=== PATIENT | male | born 1960 | race Hispanic/Latino ===

== ENCOUNTER 2016-10-30 15:17 | Emergency (ER) | payer MEDICAID ==
[2016-10-30 15:25] VITALS: BMI 30.4
[2016-10-30 15:26] VITALS: BP 154/88; PULSE 91; RESP 16; TEMP 98.9; O2SAT 97
--- NOTE | 2016-10-30 15:50 | ED PDOC ---
Arrival/HPI - General Chief Complaint: Abnormal Skin Integrity Time Seen by Provider: 10/30/16 15:47 Historian: Patient - History of Present Illness Narrative History of Present Illness (Text): 10/30/16 15:53 55 year old male presents to the emergency department with 3 day duration of abscess on right posterior thigh right below the gluteal fold. Patient states pain is worse when sitting and better when standing. No fever or chills. Time/Duration: < week Symptom Onset: Gradual Symptom Course: Unchanged Modifying Factors (Text): Worse with sitting, better with standing Associated Symptoms (Text): None Past Medical History - Provider Review Nursing Documentation Reviewed: Yes - Infectious Disease Hx of Infectious Diseases: None - Cardiac Hx Cardiac Disorders: No Hx Pacemaker: No - Pulmonary Hx Respiratory Disorders: No - Neurological Hx Neurological Disorder: No Hx Paralysis: No - HEENT Hx HEENT Disorder: No - Renal Hx Renal Disorder: No - Endocrine/Metabolic Hx Endocrine Disorders: No - Hematological/Oncological Hx Blood Disorders: Yes (porphyria) Hx Blood Transfusions: Yes Hx Blood Transfusion Reaction: No Hx Hepatitis C: Yes - Integumentary Hx Dermatological Disorder: No - Musculoskeletal/Rheumatological Hx Musculoskeletal Disorders: No - Gastrointestinal Hx Gastrointestinal Disorders: No - Genitourinary/Gynecological Hx Genitourinary Disorders: No - Psychiatric Hx Psychophysiologic Disorder: Yes Hx Depression: Yes Hx Substance Use: No - Anesthesia Hx Anesthesia Reactions: No Hx Malignant Hyperthermia: No Family/Social History - Physician Review Nursing Documentation Reviewed: Yes Family/Social History: Unknown Family HX Smoking Status: Heavy Smoker > 10 Cigarettes Daily Hx Alcohol Use: No Hx Substance Use: No Allergies/Home Meds Allergies/Adverse Reactions: Allergies No Known Allergies Allergy (Verified 10/30/16 15:28) Review of Systems - Physician Review All systems were reviewed & negative as marked: Yes Physical Exam - Physical Exam Narrative Physical Exam (Text): - Review of Systems Constitutional: Normal. absent: Fatigue, Weight Change, Fevers Eyes: Normal ENT: Normal Respiratory: Normal absent: SOB, Cough, Sputum Cardiovascular: Normal absent: Chest pain, Palpitations, Syncope Gastrointestinal: Normal absent: Abdominal pain, Diarrhea, Nausea, Vomiting Genitourinary: Normal. absent: Dysuria, Frequency, Hematuria Musculoskeletal: Normal. absent: Arthralgias, Back Pain, Neck Pain Skin: Abscess on right posterior thigh right below gluteal fold Neurological: Normal absent: Focal Weakness Endocrine: Normal Hemo/Lymphatic: Normal Psychiatric: Normal - Physical exam Patient appears age appropriate, speaking full sentences without difficulty - Systems Exam Head: Present: Atraumatic, Normocephalic Pupils: Present: PERRL Extraocular Muscles: Present: EOMI Conjunctiva: Present: Normal Mouth: Present: Moist Mucous Membranes Neck: Present: Normal Range of Motion. No: MIDLINE TENDERNESS, Paraspinal Tenderness Respiratory/Chest: Present: Clear to Auscultation, Good Air Exchange. No: Respiratory Distress, Accessory Muscle Use, Tachypneic Cardiovascular: Present: Regular Rate and Rhythm, Normal S1, S2, Peripheral Pulses Present. No: Murmurs Abdomen: Present: Normal Bowel Sounds, No: Tenderness, Peritoneal Signs, Rebound, Guarding, Distention Back: Present: Normal Inspection. No: Midline Tenderness, Paraspinal Tenderness Upper Extremity: Present: Normal Inspection. No: Cyanosis, Edema Lower Extremity: Present: Palpable 2x2 cm mass on right posterior thigh right below gluteal fold with no fluctuance, no redness, no erythema, no induration No: Edema Neurological: Present: GCS=15, Speech Normal, cranial nerves II through XII fully intact with no cerebellar abnormality, neuro-sensory fully intact. No focal neurological deficits. Skin: Present: Warm, Dry, Normal Color. No: Rashes Lymphatic: Present: OX3, NI, NC Psychiatric: Present: Alert, Oriented x 3, Normal Insight, Normal Concentration. Vital Signs Reviewed: Yes Vital Signs Temp Pulse Resp BP Pulse Ox 10/30/16 15:25 98.9 F 91 H 16 154/88 H 97 Temperature: Afebrile Blood Pressure: Normal Pulse: Regular Respiratory Rate: Normal Appearance: Positive for: Well-Appearing, Non-Toxic, Comfortable Pain Distress: None Mental Status: Positive for: Alert and Oriented X 3 Medical Decision Making ED Course and Treatment: Impression: 55 year old male presents to the emergency department with 3 day duration of abscess on right posterior thigh right below the gluteal fold. On physical exam, patient has a palpable 2 x 2 cm mass on the right posterior thigh right below the gluteal fold. Differential Diagnosis include but are not limited to: Abscess Plan: -- Discharge with antibiotics Progress Notes: 10/30/16 15:57 Spoke with patient. Explained that this is likely an abscess with no immediate indications for I&D at this time. Recommended course of antibiotics first, and follow up in ER for bloodwork, imaging and further workup if symptoms not resolved within 48 hours. Patient agrees with plan. - Scribe Statement The provider has reviewed the documentation as recorded by the Damian Tucker Provider Scribe Attestation: All medical record entries made by the Scribe were at my direction and personally dictated by me. I have reviewed the chart and agree that the record accurately reflects my personal performance of the history, physical exam, medical decision making, and the department course for this patient. I have also personally directed, reviewed, and agree with the discharge instructions and disposition. Disposition/Present on Arrival - Present on Arrival Any Indicators Present on Arrival: No History of DVT/PE: No History of Uncontrolled Diabetes: No Urinary Catheter: No History of Decub. Ulcer: No History Surgical Site Infection Following: None - Disposition Have Diagnosis and Disposition been Completed?: Yes Diagnosis: Abscess Disposition: HOME/ ROUTINE Disposition Time: 15:49 Patient Plan: Discharge Condition: GOOD Discharge Instructions (ExitCare): Abscess (ED) Additional Instructions: PLEASE RETURN TO THE EMERGENCY DEPARTMENT FOR NEW OR WORSENING SYMPTOMS. RETURN RIGHT AWAY IF YOU CANNOT FOLLOW UP WITH YOUR PRIMARY CARE DOCTOR, CLINIC, OR SPECIALIST IN 1-2 DAYS. PLEASE RETURN IF SYMPTOMS HAVE NOT RESOLVED WITHIN 48 HOURS WITH ANTIBIOTICS Prescriptions: Cephalexin [Keflex] 500 mg PO TID #21 capsule Ibuprofen [Motrin] 600 mg PO Q8 PRN #12 tab PRN Reason: Pain, Moderate (4-7) Sulfamethoxazole/Trimethoprim [Bactrim DS 800 mg-160 mg] 1 tab PO Q12 #20 tab Referrals: Jonathan Ellis MD [Staff Provider] - Follow up with primary Dat Camp MD [Staff Provider] - Follow up with primary Forms: WORK NOTE
== END 2016-10-30 16:30 | disposition home or self-care (01) ==
LOC: ED 15:17
DX: L02.415 Cutaneous abscess of right lower limb (principal)

== ENCOUNTER 2016-11-03 14:01 | Emergency (ER) | payer MEDICAID ==
[2016-11-03 14:01] VITALS: BMI 30.4
[2016-11-03 14:37] VITALS: TEMP 98.1; O2SAT 100
[2016-11-03] MEDS ORDERED: Lidocaine 1%/Epinephrine 1:100000 30 ml vial IJ ONE (15:22)
--- NOTE | 2016-11-03 16:45 | ED PDOC ---
Arrival/HPI - General Chief Complaint: Abnormal Skin Integrity Time Seen by Provider: 11/03/16 14:50 - History of Present Illness Narrative History of Present Illness (Text): 11/03/16 16:52 55-year-old male with an abscess just below his left buttock, presents with increasing in size last few days. Reports compliance with antibiotics. States that it has gotten progressively bigger in size, but significantly decreased in pain. Denies fevers or chills, denies other complaints. Past Medical History - Provider Review Nursing Documentation Reviewed: Yes - Infectious Disease Hx of Infectious Diseases: None - Cardiac Hx Cardiac Disorders: No Hx Pacemaker: No - Pulmonary Hx Respiratory Disorders: No - Neurological Hx Neurological Disorder: No Hx Paralysis: No - HEENT Hx HEENT Disorder: No - Renal Hx Renal Disorder: No - Endocrine/Metabolic Hx Endocrine Disorders: No - Hematological/Oncological Hx Blood Disorders: Yes (porphyria) Hx Blood Transfusions: Yes Hx Blood Transfusion Reaction: No Hx Hepatitis C: Yes - Integumentary Hx Dermatological Disorder: No - Musculoskeletal/Rheumatological Hx Musculoskeletal Disorders: No - Gastrointestinal Hx Gastrointestinal Disorders: No - Genitourinary/Gynecological Hx Genitourinary Disorders: No - Psychiatric Hx Psychophysiologic Disorder: Yes Hx Depression: Yes Hx Substance Use: No - Anesthesia Hx Anesthesia: Yes Hx Anesthesia Reactions: No Hx Malignant Hyperthermia: No Family/Social History Family/Social History: Unknown Family HX Smoking Status: Heavy Smoker > 10 Cigarettes Daily Hx Alcohol Use: No Hx Substance Use: No Allergies/Home Meds Allergies/Adverse Reactions: Allergies No Known Allergies Allergy (Verified 11/03/16 14:35) Physical Exam Vital Signs Reviewed: Yes Vital Signs Temp Pulse Resp BP Pulse Ox 11/03/16 14:36 98.1 F 88 18 155/92 H 100 Temperature: Afebrile Blood Pressure: Hypertensive Pulse: Regular Respiratory Rate: Normal Appearance: Positive for: Well-Appearing Pain Distress: None Mental Status: Positive for: Alert and Oriented X 3 - Systems Exam Skin: Present: Other (Left lower extremity, posterior thigh, just below the gluteal fold, fluctuant erythematous mass consistent with an abscess. Approximately 4-5 cm in circumference) Medical Decision Making ED Course and Treatment: 11/03/16 16:48 Patient emergency department with an abscess which he states has become more superficial since his last visit, is now erythematous, and slightly larger. Verbal consent obtained for incision and drainage procedure. Patient instructed to follow-up with his primary physician or in the emergency department in 48 hours for packing removal and reevaluation. Patient has been taking antibiotics since his last visit and has been instructed to continue taking his course Pt states he understands to return to the ER right away for new or worsening symptoms or for inability to f/u with PMD or specialist as instructed. Patient states that he fully agrees with and understands discharge instructions. States that he agrees with the plan and disposition. Verbalized and repeated discharge instructions and plan. I have given the patient opportunity to ask any additional questions. - Medication Orders Current Medication Orders: Discontinued Medications Lidocaine/Epinephrine (Lidocaine 1%/Epinephrine 1:740308 30 Ml) 30 ml IJ ONCE ONE Stop: 11/03/16 15:23 Disposition/Present on Arrival - Present on Arrival Any Indicators Present on Arrival: No History of DVT/PE: No History of Uncontrolled Diabetes: No Urinary Catheter: No History of Decub. Ulcer: No History Surgical Site Infection Following: None - Disposition Have Diagnosis and Disposition been Completed?: Yes Diagnosis: Abscess Disposition: HOME/ ROUTINE Disposition Time: 16:40 Patient Plan: Discharge Condition: GOOD Discharge Instructions (ExitCare): Abscess (ED), Abscess Incision and Drainage (ED) Additional Instructions: Please continue taking antibiotics as prescribed during her last visit Keep wound clean and dry Follow-up with primary physician or in the emergency department in 48 hours for packing removal Return to ER right away for pain, redness, swelling or excessive drainage, or if you are able to follow-up as instructed Referrals: Dat Camp MD [Primary Care Provider] - Follow up with primary - Incision & Drainage Of Abscess Anesthesia: Lidocaine 1%, With Epi Prep Used: Betadine Procedure: Incised W/Scalpel Blade#: (10), Drained Pus (15ml), Probed To Break Up Loculations, Packed W/Gauze
[2016-11-03 17:51] VITALS: BP 139/76; PULSE 81; RESP 17
[2016-11-04] MEDS ORDERED: Albuterol-Ipratrop 3 mg / 0.5 (3 ml) UD IH SCH (18:00)
== END 2016-11-03 17:50 | disposition home or self-care (01) ==
LOC: ED 14:01
DX: L02.31 Cutaneous abscess of buttock (principal); F17.210 Nicotine dependence, cigarettes, uncomplicated

== ENCOUNTER 2016-11-05 13:12 | Emergency (ER) | payer MEDICAID ==
[2016-11-05 13:12] VITALS: BMI 30.4
[2016-11-05 13:22] VITALS: RESP 16; TEMP 98.4
--- NOTE | 2016-11-05 14:30 | ED PDOC ---
Arrival/HPI - General Chief Complaint: Wound Check Time Seen by Provider: 11/05/16 14:26 Historian: Patient - History of Present Illness Narrative History of Present Illness (Text): 11/05/16 14:27 This 55 yo male presents to this ED for wound recheck and packing removal. Patient stated he was seen in this ED x 2 days. He had an I&D and he was recommneded nto return to ED for revaluation. He said abscess pain has improved. Denies new complains Context: Home Past Medical History - Provider Review Nursing Documentation Reviewed: Yes - Infectious Disease Hx of Infectious Diseases: None - Cardiac Hx Cardiac Disorders: No Hx Pacemaker: No - Pulmonary Hx Respiratory Disorders: No - Neurological Hx Neurological Disorder: No Hx Paralysis: No - HEENT Hx HEENT Disorder: No - Renal Hx Renal Disorder: No - Endocrine/Metabolic Hx Endocrine Disorders: No - Hematological/Oncological Hx Blood Disorders: Yes Hx Blood Transfusions: Yes Hx Blood Transfusion Reaction: No Hx Hepatitis C: Yes - Integumentary Hx Dermatological Disorder: No - Musculoskeletal/Rheumatological Hx Musculoskeletal Disorders: No - Gastrointestinal Hx Gastrointestinal Disorders: No - Genitourinary/Gynecological Hx Genitourinary Disorders: No - Psychiatric Hx Psychophysiologic Disorder: Yes Hx Depression: Yes Hx Substance Use: No - Anesthesia Hx Anesthesia: Yes Hx Anesthesia Reactions: No Hx Malignant Hyperthermia: No Family/Social History - Physician Review Nursing Documentation Reviewed: Yes Family/Social History: No Known Family HX Smoking Status: Heavy Smoker > 10 Cigarettes Daily Hx Alcohol Use: No Hx Substance Use: No Allergies/Home Meds Allergies/Adverse Reactions: Allergies No Known Allergies Allergy (Verified 11/05/16 13:19) Review of Systems - Review of Systems Constitutional: Normal. absent: Fatigue, Weight Change, Fevers Eyes: Normal ENT: Normal Respiratory: Normal Cardiovascular: Normal Gastrointestinal: Normal Genitourinary Male: Normal Musculoskeletal: Normal Skin: Rash, Pruritis, Other (See HPI). absent: Skin Lesions, Laceration Neurological: Normal Endocrine: Normal Hemo/Lymphatic: Normal Psychiatric: Normal Physical Exam Vital Signs Temp Pulse Resp BP Pulse Ox 11/05/16 13:20 98.4 F 96 H 16 132/86 97 Temperature: Afebrile Blood Pressure: Normal Pulse: Regular Respiratory Rate: Normal Appearance: Positive for: Well-Appearing, Non-Toxic, Comfortable Pain Distress: None Mental Status: Positive for: Alert and Oriented X 3 - Systems Exam Head: Present: Atraumatic, Normocephalic Pupils: Present: PERRL Extroacular Muscles: Present: EOMI Conjunctiva: Present: Normal Mouth: Present: Moist Mucous Membranes Neck: Present: Normal Range of Motion Respiratory/Chest: Present: Clear to Auscultation, Good Air Exchange. No: Respiratory Distress, Accessory Muscle Use, Wheezes Cardiovascular: Present: Regular Rate and Rhythm, Normal S1, S2. No: Murmurs Back: Present: Normal Inspection Upper Extremity: Present: Normal Inspection, Normal ROM, NORMAL PULSES, Neurovascularly Intact, Capillary Refill < 2s Lower Extremity: Present: Normal Inspection, NORMAL PULSES, Normal ROM, Neurovascularly Intact, Capillary Refill < 2 s. No: Edema, CALF TENDERNESS Neurological: Present: GCS=15, CN II-XII Intact, Speech Normal, Motor Func Grossly Intact, Normal Sensory Function, Normal Cerebellar Funct, Gait Normal, Memory Normal Skin: Present: Warm, Dry, Rashes (urticaria like rash, balnches on palpation), Normal Color Psychiatric: Present: Alert, Oriented x 3 Medical Decision Making ED Course and Treatment: 11/05/16 14:30 Patient is resting comfortably, and is in no acute distress. Patient was instructed to follow up with PMD in 1-2 days for further evaluation. Re-evaluation Time: 14:30 Reassessment Condition: Re-examined, Improved - Procedure PROCEDURE NOTE (Text): 11/05/16 14:31 Packing was removed without complication. Wound is healing well. No drainage , erythema, or tenderness. Disposition/Present on Arrival - Present on Arrival Any Indicators Present on Arrival: No History of DVT/PE: No History of Uncontrolled Diabetes: No Urinary Catheter: No History of Decub. Ulcer: No History Surgical Site Infection Following: None - Disposition Have Diagnosis and Disposition been Completed?: Yes Diagnosis: Encounter for wound re-check, Encounter for removal of abscess packing, Rash and nonspecific skin eruption Disposition: HOME/ ROUTINE Disposition Time: 14:32 Patient Plan: Discharge Condition: IMPROVED Discharge Instructions (ExitCare): Abscess Incision and Drainage (ED), Acute Rash (ED) Additional Instructions: Call private doctor for follow up visit in 1-2 days. Continue with antibiotic as instructed by the other doctor. Take medication for itchiness as instructed. This medication can cause drowsiness, so be careful and avoid driving or operate machinery. Return to emergency if symptoms worsen. Prescriptions: Hydroxyzine Pamoate [Vistaril] 25 mg PO TID PRN #30 capsule PRN Reason: Itching / Pruritus Referrals: Dat Camp MD [Primary Care Provider] - Follow up with primary Forms: WORK NOTE
[2016-11-05 15:02] VITALS: BP 128/80; PULSE 91; O2SAT 98
== END 2016-11-05 15:01 | disposition home or self-care (01) ==
LOC: ED 13:12
DX: R21 Rash and other nonspecific skin eruption (principal); Z48.00 Encounter for change or removal of nonsurgical wound dressing; Z51.89 Encounter for other specified aftercare

== ENCOUNTER 2016-12-22 20:33 | Observation (INO) | payer MEDICAID ==
[2016-12-22 20:34] VITALS: BMI 30.4
[2016-12-22] MEDS ORDERED: Piperacillin/Tazobact 3.375 gm 100 ML IVPB STA (22:37)
[2016-12-22] MEDS ORDERED: Vancomycin 1gm in NS 250ml 1 GM/250 ML BAG IVPB STA (22:37)
--- NOTE | 2016-12-22 22:45 | ED PDOC ---
Arrival/HPI <Demetris Hammer - Last Filed: 12/22/16 23:06> - General Historian: Patient <Raysa Parada PA-C - Last Filed: 12/23/16 01:22> - General Chief Complaint: Abnormal Skin Integrity Time Seen by Provider: 12/22/16 20:40 - History of Present Illness Narrative History of Present Illness (Text): 12/22/16 22:41 Patient with no significant past medical history, complains of a painful mass of gradually increasing size of the right-sided the scrotum for one week. Denies any abdominal pain, nausea, vomiting, urinary symptoms, testicular pain or back pain. Otherwise: (-) foreign body, (-) fever, (-) chills, (-) recent antibiotic use. PMD [place] (Raysa Parada PA-C) Past Medical History - Provider Review Nursing Documentation Reviewed: Yes - Infectious Disease Hx of Infectious Diseases: None - Tetanus Immunization Tetanus Immunization: Up to Date - Cardiac Hx Cardiac Disorders: No Hx Pacemaker: No - Pulmonary Hx Respiratory Disorders: No - Neurological Hx Neurological Disorder: No Hx Paralysis: No - HEENT Hx HEENT Disorder: No - Renal Hx Renal Disorder: No - Endocrine/Metabolic Hx Endocrine Disorders: No - Hematological/Oncological Hx Blood Disorders: Yes Hx Blood Transfusions: Yes Hx Blood Transfusion Reaction: No Hx Hepatitis C: Yes - Integumentary Hx Dermatological Disorder: Yes Other/Comment: abcess to the L inner thigh. mikaela - Musculoskeletal/Rheumatological Hx Musculoskeletal Disorders: No - Gastrointestinal Hx Gastrointestinal Disorders: No - Genitourinary/Gynecological Hx Genitourinary Disorders: No - Psychiatric Hx Psychophysiologic Disorder: Yes Hx Depression: Yes Hx Substance Use: No - Surgical History Hx Appendectomy: Yes Other/Comment: L wrist surgery - Anesthesia Hx Anesthesia: Yes Hx Anesthesia Reactions: No <Raysa Parada PA-C - Last Filed: 12/23/16 01:22> Family/Social History - Physician Review Nursing Documentation Reviewed: Yes Family/Social History: No Known Family HX Smoking Status: Heavy Smoker > 10 Cigarettes Daily Hx Alcohol Use: No Hx Substance Use: No <Raysa Parada PA-C - Last Filed: 12/23/16 01:22> Allergies/Home Meds <Demetris Hammer - Last Filed: 12/22/16 23:06> <Raysa Parada PA-C - Last Filed: 12/23/16 01:22> Allergies/Adverse Reactions: Allergies No Known Allergies Allergy (Verified 12/22/16 20:38) Home Medications: Home Meds Medication Instructions Recorded Confirmed DiphenhydrAMINE [Benadryl] 50 mg PO DAILY 12/22/16 12/22/16 Sertraline [Zoloft] 50 mg PO BID 12/22/16 12/22/16 Review of Systems - Review of Systems Constitutional: Normal. absent: Fatigue, Weight Change, Fevers Respiratory: Normal. absent: SOB, Cough, Sputum Cardiovascular: Normal. absent: Chest Pain, Palpitations Gastrointestinal: Normal. absent: Abdominal Pain, Stool Changes, Appetite Changes Genitourinary Male: Normal. absent: Dysuria, Frequency, Hematuria Musculoskeletal: Normal. absent: Arthralgias, Back Pain, Neck Pain Skin: Normal, Abscess. absent: Rash, Pruritis, Skin Lesions <Raysa Parada PA-C - Last Filed: 12/23/16 01:22> Physical Exam <Demetris Hammer - Last Filed: 12/22/16 23:06> <Raysa Parada PA-C - Last Filed: 12/23/16 01:22> - Physical Exam Narrative Physical Exam (Text): 12/22/16 22:42 GENERAL APPEARANCE: Patient is awake, alert, oriented x 3, in no acute distress. SKIN: Warm, dry; (-) cyanosis. EYES: (-) conjunctival pallor, (-) scleral icterus. ENMT: Mucous membranes moist. NECK: (-) tenderness, (-) stiffness, (-) lymphadenopathy. CHEST AND RESPIRATORY: (-) rales, (-) rhonchi, (-) wheezes; breath sounds equal bilaterally. HEART AND CARDIOVASCULAR: (-) irregularity; (-) murmur, (-) gallop. ABDOMEN AND GI: (-) distention. Bowel sounds active; (-) tenderness, (-) guarding, (-) rebound, (-) palpable masses, (-) CVA tenderness. : Normal circumcised male, (+) 3x4 cm erythematous, tender, fluctuant abscess to the R scrotum proximal to the shaft. EXTREMITIES: (-) deformity, (-) edema, (+) distal pulses. NEURO AND PSYCH: Mental status as above; (-) focal findings. (Raysa Parada PA-C) Vital Signs Temp Pulse Resp BP Pulse Ox 12/23/16 00:38 85 18 129/80 100 12/22/16 20:41 98.5 F 89 19 133/78 99 Medical Decision Making <Demetris Hammer - Last Filed: 12/22/16 23:06> <Raysa Parada PA-C - Last Filed: 12/23/16 01:22> ED Course and Treatment: 12/22/16 22:44 Patient with no significant past medical history, complains of a painful mass of gradually increasing size of the right-sided the scrotum for one week. To consider cellulitis, likely abscess, r/o testicular torsion. Plan: -- Labs -- IV fluids -- Urinalysis -- EKG -- CXR -- Toradol IV -- Vancomycin IV and Zosyn IV -- Reassess and disposition -- testicular ultrasound with Doppler residential monitor called immediately. Case discussed with vice president and portfolio manager Dr. Ziyad Whitney, agrees to come and evaluate the patient. After evaluation of the vice president and portfolio manager, he deems that the patient needs incision and drainage in the OR. Recommends labs, IV antibiotics, testicular ultrasound and for the patient to be admitted for OR in the morning. Patient agrees with further plan of care for inpatient admission and OR in the AM. Case d/w Dr. Puga she agrees to admit the patient. (Raysa Parada PA-C) - Lab Interpretations Lab Results: 12/22/16 22:50 12/22/16 22:50 Lab Results 12/22/16 22:50: Sodium 140, Potassium 4.1, Chloride 107, Carbon Dioxide 24, Anion Gap 13, BUN 16, Creatinine 0.9, Est GFR ( Amer) > 60, Est GFR (Non- Af Amer) > 60, Random Glucose 96, Calcium 9.4, Total Bilirubin 0.4, AST 23, ALT 26, Alkaline Phosphatase 74, Total Protein 8.0, Albumin 4.5, Globulin 3.5, Albumin/Globulin Ratio 1.3 12/22/16 22:50: PT 10.7, INR 0.99, APTT 27.5 12/22/16 22:50: WBC 8.5 D, RBC 3.85, Hgb 12.8 L, Hct 36.2 L, MCV 94.0, MCH 33.2 , MCHC 35.4, RDW 13.8, Plt Count 222, MPV 10.7, Gran % 61.1, Lymph % (Auto) 26.8 , [place] % (Auto) 8.5 H, Eos % (Auto) 3.4, Baso % (Auto) 0.2, Gran # 5.20, Lymph # 2.3, [place] # 0.7 H, Eos # 0.3, Baso # 0.02 - RAD Interpretation Radiology Orders: 12/22/16 22:36 CHEST ONE VIEW [RAD] Stat 12/22/16 22:38 TESTES DUPLEX COMPLETE [US] Stat - Medication Orders Current Medication Orders: Dextrose/Sodium Chloride (Dextrose 5%/0.45% Ns 1000 Ml) 1,000 mls @ 100 mls/hr IV .Q10H CELINE Ketorolac Tromethamine (Toradol) 15 mg IVP Q6H PRN PRN Reason: Pain, Mild (1-3) Discontinued Medications Cephalexin Monohydrate (Keflex) 500 mg PO BID STA PRN Reason: Protocol Stop: 12/22/16 23:57 Vancomycin HCl (Vancomycin 1gm) 1 gm in 250 mls @ 167 mls/hr IVPB STAT STA PRN Reason: Protocol Stop: 12/23/16 00:06 Last Admin: 12/23/16 00:08 Dose: 167 mls/hr Piperacillin Sod/Tazobactam Sod (Zosyn 3.375 In Ns 100ml) 100 mls @ 200 mls/hr IVPB STAT STA PRN Reason: Protocol Stop: 12/22/16 23:06 Last Admin: 12/22/16 23:17 Dose: 200 mls/hr Ketorolac Tromethamine (Toradol) 30 mg IVP STAT STA Stop: 12/22/16 22:38 Last Admin: 12/22/16 23:16 Dose: 30 mg - PA / TURF GROWER / Resident Statement PRESTON has reviewed & agrees with the documentation as recorded. PRESTON has examined the patient and agrees with the treatment plan. <Demetris Hammer - Last Filed: 12/22/16 23:06> - PA / TURF GROWER / Resident Statement / has reviewed & agrees with the documentation as recorded. <Raysa Parada PA-C - Last Filed: 12/23/16 01:22> Disposition/Present on Arrival <Demetris Hammer - Last Filed: 12/22/16 23:06> - Present on Arrival Any Indicators Present on Arrival: No History of DVT/PE: No History of Uncontrolled Diabetes: No Urinary Catheter: No History of Decub. Ulcer: No History Surgical Site Infection Following: None - Disposition Have Diagnosis and Disposition been Completed?: Yes Disposition Time: 22:15 Patient Plan: Admission <Raysa Parada PA-C - Last Filed: 12/23/16 01:22> - Disposition Diagnosis: Scrotal abscess Disposition: HOSPITALIZED Patient Problems: Current Active Problems Problem Status Onset Scrotal abscess Acute Condition: STABLE
[2016-12-22 23:10] LABS: ALB/GLOB RATIO 1.3 (1.1-1.8); ALBUMIN 4.5 g/dL (3.0-4.8); ALT/SGPT 26 U/L (7-56); AST/SGOT 23 U/L (15-59); BLOOD UREA NITROGEN 16 mg/dL (7-21); CALCIUM 9.4 mg/dL (8.4-10.5); GFR AFRICAN-AMERICAN > 60; GFR NON-AFRICAN AMERICAN > 60
[2016-12-22 23:33] LABS: BASO # 0.02 K/mm3 (0.0-2.0); BASO % 0.2 % (0.0-3.0); EOS # 0.3 (0.0-0.7); EOS % 3.4 % (1.5-5.0); GRAN % 61.1 % (50.0-68.0); HEMOGLOBIN 12.8 gm/dL (14.0-18.0); LYMPH # 2.3 (1.2-3.4); LYMPH % 26.8 % (22.0-35.0); MEAN CORPUSCULAR HEMOGLOBIN 33.2 pg (25.0-35.0); MEAN CORPUSCULAR HGB CONC 35.4 g/dl (31.0-37.0); MEAN PLATELET VOLUME 10.7 fl (7.0-11.0); MONO # 0.7 (0.1-0.6); MONO % 8.5 % (1.0-6.0); PLATELET COUNT 222 10^3/uL (120.0-450.0); RBC 3.85 10^6/uL (3.5-6.1); RED CELL DISTRIBUTION WIDTH 13.8 % (11.5-14.5); WHITE BLOOD COUNT 8.5 10^3/ul (4.5-11.0)
[2016-12-22 23:37] LABS: INR 0.99 (0.93-1.08); PARTIAL THROMBOPLASTIN TIME 27.5 Seconds (23.7-30.8); PROTHROMBIN TIME 10.7 Seconds (9.9-11.8)
--- NOTE | 2016-12-23 00:09 | CP.PCM.CON ---
Past Patient History - Infectious Disease Hx of Infectious Diseases: None - Tetanus Immunizations Tetanus Immunization: Up to Date - Past Social History Smoking Status: Heavy Smoker > 10 Cigarettes Daily - CARDIAC Hx Cardiac Disorders: No Hx Pacemaker: No - PULMONARY Hx Respiratory Disorders: No - NEUROLOGICAL Hx Neurological Disorder: No Hx Paralysis: No - HEENT Hx HEENT Problems: No - RENAL Hx Chronic Kidney Disease: No - ENDOCRINE/METABOLIC Hx Endocrine Disorders: No - HEMATOLOGICAL/ONCOLOGICAL Hx Blood Disorders: Yes Hx Blood Transfusions: Yes Hx Blood Transfusion Reaction: No Hx Hepatitis C: Yes - INTEGUMENTARY Hx Dermatological Problems: Yes Other/Comment: abcess to the L inner thigh. mikaela - MUSCULOSKELETAL/RHEUMATOLOGICAL Hx Musculoskeletal Disorders: No - GASTROINTESTINAL Hx Gastrointestinal Disorders: No - GENITOURINARY/GYNECOLOGICAL Hx Genitourinary Disorders: No - PSYCHIATRIC Hx Psychophysiologic Disorder: Yes Hx Depression: Yes Hx Substance Use: No - SURGICAL HISTORY Hx Appendectomy: Yes Other/Comment: L wrist surgery - ANESTHESIA Hx Anesthesia: Yes Hx Anesthesia Reactions: No Meds Allergies/Adverse Reactions: Allergies Allergy/AdvReac Type Severity Reaction Status Date / Time No Known Allergies Allergy Verified 12/22/16 20:38 - Medications Medications: Current Medications Cephalexin Monohydrate (Keflex) 500 mg PO BID STA PRN Reason: Protocol Stop: 12/22/16 23:57 Vancomycin HCl (Vancomycin 1gm) 1 gm in 250 mls @ 167 mls/hr IVPB STAT STA PRN Reason: Protocol Stop: 12/23/16 00:06 Ketorolac Tromethamine (Toradol) 15 mg IVP Q6H PRN PRN Reason: Pain, Mild (1-3) Results - Vital Signs Recent Vital Signs: Last Vital Signs Temp 98.5 F 12/22/16 20:41 Pulse 89 12/22/16 20:41 Resp 19 12/22/16 20:41 BP 133/78 12/22/16 20:41 Pulse Ox 99 12/22/16 20:41 - Labs Result Diagrams: 12/22/16 22:50 12/22/16 22:50
--- NOTE | 2016-12-23 00:13 | CP.PCM.HP ---
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 Pt presents with CC of a right scrotal tenderness he first noticed 5 days ago as a small marble sized lesion. Over the following 5 days it progressively enlarged and became more tender, and is now an inflamed fluctuant 2x2cm mass on the right scrotum. Pt denies any associated f/c, n/c, dysuria or urethral discharge. Reports having had a similar abscess on the medial thigh several weeks ago that required incision and drainage. PMH: as above PSH: none NKDA Present on Admission - Present on Admission Any Indicators Present on Admission: No Review of Systems - Review of Systems All systems: reviewed and no additional remarkable complaints except (as per hpi ) Past Patient History - Infectious Disease Hx of Infectious Diseases: None - Tetanus Immunizations Tetanus Immunization: Up to Date - Past Social History Smoking Status: Heavy Smoker > 10 Cigarettes Daily - CARDIAC Hx Cardiac Disorders: No Hx Pacemaker: No - PULMONARY Hx Respiratory Disorders: No - NEUROLOGICAL Hx Neurological Disorder: No Hx Paralysis: No - HEENT Hx HEENT Problems: No - RENAL Hx Chronic Kidney Disease: No - ENDOCRINE/METABOLIC Hx Endocrine Disorders: No - HEMATOLOGICAL/ONCOLOGICAL Hx Blood Disorders: Yes Hx Blood Transfusions: Yes Hx Blood Transfusion Reaction: No Hx Hepatitis C: Yes - INTEGUMENTARY Hx Dermatological Problems: Yes Other/Comment: abcess to the L inner thigh. mikaela - MUSCULOSKELETAL/RHEUMATOLOGICAL Hx Musculoskeletal Disorders: No - GASTROINTESTINAL Hx Gastrointestinal Disorders: No - GENITOURINARY/GYNECOLOGICAL Hx Genitourinary Disorders: No - PSYCHIATRIC Hx Psychophysiologic Disorder: Yes Hx Depression: Yes Hx Substance Use: No - SURGICAL HISTORY Hx Appendectomy: Yes Other/Comment: L wrist surgery - ANESTHESIA Hx Anesthesia: Yes Hx Anesthesia Reactions: No Meds Allergies/Adverse Reactions: Allergies Allergy/AdvReac Type Severity Reaction Status Date / Time No Known Allergies Allergy Verified 12/22/16 20:38 Physical Exam - Constitutional Appears: Non-toxic, No Acute Distress - Respiratory Exam Respiratory Exam: absent: Accessory Muscle Use, Respiratory Distress - Cardiovascular Exam Cardiovascular Exam: REGULAR RHYTHM. absent: Tachycardia - GI/Abdominal Exam GI & Abdominal Exam: Soft. absent: Tenderness - Exam Exam: Scrotal Swelling, Testicular Tenderness. absent: NORMAL INSPECTION ( 2x2 red indurated abscess on right scrotum), Uretheral Discharge - Neurological Exam Neurological exam: Alert, Oriented x3 - Psychiatric Exam Psychiatric exam: Normal Affect, Normal Mood - Skin Skin Exam: Normal Color, Warm Results - Vital Signs Recent Vital Signs: Last Vital Signs Temp 98.5 F 12/22/16 20:41 Pulse 89 12/22/16 20:41 Resp 19 12/22/16 20:41 BP 133/78 12/22/16 20:41 Pulse Ox 99 12/22/16 20:41 - Labs Result Diagrams: 12/22/16 22:50 12/22/16 22:50 Assessment & Plan - Assessment and Plan (Free Text) Assessment: 56M with right scrotal abscess Plan: Keflex BID NPO @ [facility] OR tomorrow for incision and drainage CXR, EKG, Coags all in chart IV fluids will follow up with Dr Puga in [place], PGY3 - Date & Time Date: 12/23/16 Time: 00:13
[2016-12-23] MEDS ORDERED: Dextrose 5%/0.45% NS 1,000 ML IV SCH (00:15)
[2016-12-23 00:42] LABS: URINE BILIRUBIN NEGATIVE (NEGATIVE); URINE BLOOD NEGATIVE (NEGATIVE); URINE GLUCOSE (UA) NEGATIVE (NEGATIVE); URINE LEUKOCYTE ESTERASE NEGATIVE Leu/uL (NEGATIVE); URINE NITRATE NEGATIVE (NEGATIVE); URINE PROTEIN NEGATIVE mg/dL (<30 mg/dL); URINE UROBILINOGEN 0.2 E.U./dL (<1 E.U./dL)
[2016-12-23 00:56] LABS: URINE APPEARANCE CLEAR (CLEAR); URINE COLOR YELLOW (YELLOW)
--- NOTE | 2016-12-23 08:46 | CARD ---
APPROVED REPORT EKG Measurement Heart [id number] <Conclusion> Normal sinus rhythm Cannot rule out Anterior infarct, age undetermined Abnormal ECG
--- NOTE | 2016-12-23 09:28 | CP.PCM.PN ---
Subjective - Date & Time of Evaluation Date of Evaluation: 12/23/16 Time of Evaluation: 08:28 - Subjective Subjective: PT S&E at bedside. MARITZA. Objective - Vital Signs/Intake and Output Vital Signs (last 24 hours): Temp Pulse Resp BP Pulse Ox 97.7 F 64 20 132/81 98 12/23/16 08:15 12/23/16 08:15 12/23/16 08:15 12/23/16 08:15 12/23/16 08:15 Intake and Output: 12/23/16 12/23/16 06:59 18:59 Intake Total 0 Balance 0 - Medications Medications: Current Medications Dextrose/Sodium Chloride (Dextrose 5%/0.45% Ns 1000 Ml) 1,000 mls @ 100 mls/hr IV .Q10H CELINE Ketorolac Tromethamine (Toradol) 15 mg IVP Q6H PRN PRN Reason: Pain, Mild (1-3) - Labs Labs: PT 10.7 Seconds (9.9-11.8) 12/22/16 22:50 INR 0.99 (0.93-1.08) 12/22/16 22:50 APTT 27.5 Seconds (23.7-30.8) 12/22/16 22:50
[2016-12-23 10:45] LABS: BASO # 0.02 K/mm3 (0.0-2.0); BASO % 0.3 % (0.0-3.0); EOS # 0.3 (0.0-0.7); EOS % 4.8 % (1.5-5.0); GRAN # 3.85 (1.4-6.5); GRAN % 58.3 % (50.0-68.0); HEMOGLOBIN 12.7 gm/dL (14.0-18.0); LYMPH # 1.7 (1.2-3.4); LYMPH % 25.7 % (22.0-35.0); MEAN CELL VOLUME 94.6 fL (80.0-105.0); MEAN CORPUSCULAR HEMOGLOBIN 31.3 pg (25.0-35.0); MEAN CORPUSCULAR HGB CONC 33.1 g/dl (31.0-37.0); MEAN PLATELET VOLUME 10.2 fl (7.0-11.0); MONO # 0.7 (0.1-0.6); MONO % 10.9 % (1.0-6.0); PLATELET COUNT 191 10^3/uL (120.0-450.0); RBC 4.06 10^6/uL (3.5-6.1); RED CELL DISTRIBUTION WIDTH 13.6 % (11.5-14.5); WHITE BLOOD COUNT 6.6 10^3/ul (4.5-11.0)
[2016-12-23 10:55] LABS: BLOOD UREA NITROGEN 15 mg/dL (7-21); CALCIUM 8.7 mg/dL (8.4-10.5); GFR AFRICAN-AMERICAN > 60; GFR NON-AFRICAN AMERICAN > 60
--- NOTE | 2016-12-23 10:57 | RAD ---
PROCEDURE: CHEST RADIOGRAPH, 1 VIEW HISTORY: for OR tomorrow COMPARISON: 10/28/2014 FINDINGS: LUNGS: Two vaguely ovoid opacities at left base, 1 of which appears to extend beyond the chest confines and likely resides in soft tissues overlying the chest. The 2nd density may be within the parenchyma itself or in the overlying soft tissues. Further evaluation is suggested. Recommend PA and lateral chest radiograph when clinically feasible. No other abnormal pulmonary opacity identified. PLEURA: No pneumothorax or pleural fluid seen. CARDIOVASCULAR: Normal. OSSEOUS STRUCTURES: No significant abnormalities. VISUALIZED UPPER ABDOMEN: Normal. OTHER FINDINGS: None. IMPRESSION: Ovoid opacity at left lung base. Rule out pulmonary mass or rounded infiltrate. Followup advised. Consider PA and lateral chest radiography when clinically feasible. .
[2016-12-23] MEDS ORDERED: Propofol 10 mg/ml Inj (20 ML) ONE (12:58)
[2016-12-23] MEDS ORDERED: Midazolam 2 MG/2 ML VIAL ONE (12:58)
[2016-12-23] MEDS ORDERED: Lactated Ringer's 1,000 ML IV SCH (14:16)
[2016-12-23] MEDS ORDERED: HYDROmorphone 0.5 mg/0.5 ml ISec IVP PRN (14:16)
--- NOTE | 2016-12-23 14:18 | PCM.SURG1 ---
Surgeon's Initial Post Op Note - Surgeon's Notes Surgeon: Costume Mistress: Dr. Chinchilla PGY-2, Dr. Urena PGY-1 Type of Anesthesia: General LMA Anesthesia Administered By: Dr. Calderon Pre-Operative Diagnosis: Right scrotal abscess Operative Findings: see operative report Post-Operative Diagnosis: same Operation Performed: incision and drainage of scotal abscess (right) Specimen/Specimens Removed: pus Estimated Blood Loss: EBL {In ML}: 3 Blood Products Given: N/A Drains Used: No Drains Post-Op Condition: Good Date of Surgery/Procedure: 12/23/16 Time of Surgery/Procedure: 13:30
[2016-12-23] MEDS ORDERED: Oxycodone/Acetaminophen 5/325 mg Tab PO PRN (14:21)
[2016-12-23 14:35] VITALS: O2SAT 95
[2016-12-23 15:39] VITALS: BP 113/80; PULSE 61; RESP 20; TEMP 97.4
--- NOTE | 2016-12-23 16:26 | CP.PCM.DIS ---
Provider - Provider Date of Admission: 12/22/16 23:10 Attending physician: Leigh Puga MD Primary care physician: Dat Camp MD Time Spent in preparation of Discharge (in minutes): 25 Hospital Course - Lab Results Lab Results: Most Recent Lab Values WBC 6.6 10^3/ul (4.5-11.0) D 12/23/16 10:35 RBC 4.06 10^6/uL (3.5-6.1) 12/23/16 10:35 Hgb 12.7 gm/dL (14.0-18.0) L 12/23/16 10:35 Hct 38.4 % (42.0-52.0) L 12/23/16 10:35 MCV 94.6 fL (80.0-105.0) 12/23/16 10:35 MCH 31.3 pg (25.0-35.0) 12/23/16 10:35 MCHC 33.1 g/dl (31.0-37.0) 12/23/16 10:35 RDW 13.6 % (11.5-14.5) 12/23/16 10:35 Plt Count 191 10^3/uL (120.0-450.0) 12/23/16 10:35 MPV 10.2 fl (7.0-11.0) 12/23/16 10:35 Gran % 58.3 % (50.0-68.0) 12/23/16 10:35 Lymph % (Auto) 25.7 % (22.0-35.0) 12/23/16 10:35 [place] % (Auto) 10.9 % (1.0-6.0) H 12/23/16 10:35 Eos % (Auto) 4.8 % (1.5-5.0) 12/23/16 10:35 Baso % (Auto) 0.3 % (0.0-3.0) 12/23/16 10:35 Gran # 3.85 (1.4-6.5) 12/23/16 10:35 Lymph # 1.7 (1.2-3.4) 12/23/16 10:35 [place] # 0.7 (0.1-0.6) H 12/23/16 10:35 Eos # 0.3 (0.0-0.7) 12/23/16 10:35 Baso # 0.02 K/mm3 (0.0-2.0) 12/23/16 10:35 PT 10.7 Seconds (9.9-11.8) 12/22/16 22:50 INR 0.99 (0.93-1.08) 12/22/16 22:50 APTT 27.5 Seconds (23.7-30.8) 12/22/16 22:50 Sodium 141 mmol/L (132-148) 12/23/16 10:35 Potassium 4.4 mmol/L (3.6-5.0) 12/23/16 10:35 Chloride 110 mmol/L (98-107) H 12/23/16 10:35 Carbon Dioxide 25 mmol/L (21-33) 12/23/16 10:35 Anion Gap 10 (10-20) 12/23/16 10:35 BUN 15 mg/dL (7-21) 12/23/16 10:35 Creatinine 0.9 mg/dL (0.5-1.4) 12/23/16 10:35 Est GFR ( Amer) > 60 12/23/16 10:35 Est GFR (Non-Af Amer) > 60 12/23/16 10:35 Random Glucose 110 mg/dL (70-110) 12/23/16 10:35 Calcium 8.7 mg/dL (8.4-10.5) 12/23/16 10:35 Total Bilirubin 0.4 mg/dL (0.2-1.3) 12/22/16 22:50 AST 23 U/L (15-59) 12/22/16 22:50 ALT 26 U/L (7-56) 12/22/16 22:50 Alkaline Phosphatase 74 U/L (38-133) 12/22/16 22:50 Total Protein 8.0 g/dL (5.8-8.3) 12/22/16 22:50 Albumin 4.5 g/dL (3.0-4.8) 12/22/16 22:50 Globulin 3.5 gm/dL 12/22/16 22:50 Albumin/Globulin Ratio 1.3 (1.1-1.8) 12/22/16 22:50 Urine Color Yellow (YELLOW) 12/23/16 00:17 Urine Appearance Clear (CLEAR) 12/23/16 00:17 Urine pH 6.0 (4.7-8.0) 12/23/16 00:17 Ur Specific [place] >= 1.030 (1.005-1.035) 12/23/16 00:17 Urine Protein Negative mg/dL (<30 mg/dL) 12/23/16 00:17 Urine Glucose (UA) Negative mg/dL (NEGATIVE) 12/23/16 00:17 Urine Ketones Trace mg/dL (NEGATIVE) H 12/23/16 00:17 Urine Blood Negative (NEGATIVE) 12/23/16 00:17 Urine Nitrate Negative (NEGATIVE) 12/23/16 00:17 Urine Bilirubin Negative (NEGATIVE) 12/23/16 00:17 Urine Urobilinogen 0.2 E.U./dL (<1 E.U./dL) 12/23/16 00:17 Ur Leukocyte Esterase Negative Denis/uL (NEGATIVE) 12/23/16 00:17 - Hospital Course Hospital Course: General Surgery Discharge Summary for Dr. Puga 12/22/16 Patient was admitted from the ED for a scrotal abscess. Patient had a 2x2cm mass on the right scrotum. Pt denied any associated f/c, n/c, dysuria or urethral discharge Patient was found to be a surgical candidate for incision and drainage. CXR, EKG , and coag panel was ordered in preparation for the Incision and drainage. Keflex 500 mg BID was ordered for empiric therapy for the abscess. In the OR, the mass on the right scrotum was incised. A culture was taken and sent to the lab. The abscess was drained. Patient tolerated the procedure well, is stable and is ready for discharge. 10 day prescription for Keflex 500 mg BID was ordered to treat the site of the abscess. - Date & Time of H&P Date of H&P: 12/23/16 Time of H&P: 06:00 Discharge Plan - Discharge Medications Prescriptions: Cephalexin [Keflex] 500 mg PO Q12 #20 cap - Follow Up Plan Condition: STABLE Disposition: HOME/ ROUTINE Patient education suggested?: Yes Instructions: Abscess (GEN) Additional Instructions: Prescription sent home with patient for Keflex 500 mg (antibiotic). Take one tablet twice a day for 10 days. Patient can experience fevers along with pain. Patient can take advil with directions as written on the bottle. Patient is allowed to shower, but should not submerge in water. If symptoms worsen, (which includes but is not limited to fever that does not come down with advil, bleeding, pus, severe pain, nausea, fever and chills) please come back to the emergency department. Patient can remove packing tomorrow if the packing does not fall out by itself. Patient is discharged with instructions to take the packing out on POD #1 and to return to the ED if symptoms worsen, if there is severe bleeding, or if patient experiences extreme pain, notices discharge or drainage coming from site of incision. Referrals: Dat Camp MD [Primary Care Provider] - Clinical Quality Measures - CQM - Stroke Anticoagulation Prescribed for Atrial Flutter, Atrial Fibrillation and History of:: Not Applicable
== END 2016-12-23 17:34 | disposition home or self-care (01) ==
LOC: ED 20:33 → ERH 23:10 → INTOOBSV 23:10 → ERH 23:50 → 5RSO 12-23 00:42
PROVIDERS: ADMIT Specialist; ATTEND Specialist
PROC: 0V950ZZ Drainage of Scrotum, Open Approach (ICD-10-PCS; principal; 2016-12-23 13:19)
DX: N49.2 Inflammatory disorders of scrotum (principal); E80.1 Porphyria cutanea tarda; F17.210 Nicotine dependence, cigarettes, uncomplicated; Z90.49 Acquired absence of other specified parts of digestive tract
CPT/HCPCS: 55100; 71010; 80048; 80053; 81003; 85025; 85610; 85730; 87040; 87070; 87075; 87086; 87181; 93005; 96374; 96375; 99284; G0378; J1885; J2250; J2543; J2704; J3010

== ENCOUNTER 2018-03-22 15:50 | Emergency (ER) | payer BC, MEDICAID ==
--- NOTE | 2018-03-22 17:12 | ED PDOC ---
Arrival/HPI - General Historian: Patient - History of Present Illness Narrative History of Present Illness (Text): 03/22/18 17:20 Pt is a 57 yo M with PMHx of HCV, porphyria cutanea tarda, depression presenting to the ED for worsening L foot pain. Per patient, he has been experiencing lancinating L foot pain for the past few months, rated 10/10 in severity, with radiation up the leg up to the knee for the last few days. He denies any trauma or inciting factors. He endorses pain with ambulation and states he "hobbles around" because of the pain. Denies any hx of blood clots or DVT. No other acute complaints at this time. No fevers/chills, chest pain, palpitations, sob, cough, abdominal pain, n/v/d/c. PMHx: HCV, porphyria cutanea tarda, depression PSHx: denies Allergies: NKDA Home medications: as per chart Social Hx: + tobacco use-1ppd for 20 years, denies alcohol or illicit drug use Family Hx: unknown [employer] Operator: Dr. Aleksey Stanley Orthopedics: Dr. Page Symptom Onset: Gradual Symptom Course: Worsening Quality: Burning Severity Level: Moderate Activities at Onset: Light <Hipolito Kinney - Last Filed: 03/22/18 18:13> <Edgar Verma - Last Filed: 03/22/18 18:25> - General Time Seen by Provider: 03/22/18 16:38 Past Medical History - Provider Review Nursing Documentation Reviewed: Yes - Infectious Disease Hx of Infectious Diseases: None - Tetanus Immunization Tetanus Immunization: Up to Date - Cardiac Hx Cardiac Disorders: No Hx Pacemaker: No - Pulmonary Hx Respiratory Disorders: No - Neurological Hx Neurological Disorder: No Hx Paralysis: No - HEENT Hx HEENT Disorder: No - Renal Hx Renal Disorder: No - Endocrine/Metabolic Hx Endocrine Disorders: No - Hematological/Oncological Hx Blood Transfusions: Yes Hx Blood Transfusion Reaction: No - Integumentary Hx Dermatological Disorder: Yes Other/Comment: abcess to the L inner thigh. mikaela - Musculoskeletal/Rheumatological Hx Musculoskeletal Disorders: No - Gastrointestinal Hx Gastrointestinal Disorders: No - Genitourinary/Gynecological Hx Genitourinary Disorders: No - Psychiatric Hx Psychophysiologic Disorder: Yes Hx Depression: Yes Hx Substance Use: No - Surgical History Hx Appendectomy: Yes Other/Comment: L wrist surgery - Anesthesia Hx Anesthesia Reactions: No Hx Malignant Hyperthermia: No <Hipolito Kinney - Last Filed: 03/22/18 18:13> Family/Social History - Physician Review Nursing Documentation Reviewed: Yes Family/Social History: Unknown Family HX Smoking Status: Heavy Smoker > 10 Cigarettes Daily Hx Alcohol Use: No Hx Substance Use: No <Hipolito Kinney - Last Filed: 03/22/18 18:13> Allergies/Home Meds <Hipolito Kinney - Last Filed: 03/22/18 18:13> <Edgar Verma - Last Filed: 03/22/18 18:25> Allergies/Adverse Reactions: Allergies No Known Allergies Allergy (Verified 12/22/16 20:38) Home Medications: Home Meds Medication Instructions Recorded Confirmed RX: DiphenhydrAMINE [Benadryl] 50 mg PO DAILY 12/22/16 12/22/16 RX: Sertraline [Zoloft] 50 mg PO BID 12/22/16 12/22/16 Review of Systems - Review of Systems Constitutional: Normal Eyes: Normal ENT: Normal Respiratory: Normal Cardiovascular: Normal Gastrointestinal: Normal Genitourinary Male: Normal Musculoskeletal: Arthralgias (L foot, knee), Joint Swelling (L foot) Skin: Normal Neurological: Normal Endocrine: Normal Hemo/Lymphatic: Normal Psychiatric: Depression <Hipolito Kinney - Last Filed: 03/22/18 18:13> Physical Exam - Physical Exam Narrative Physical Exam (Text): 03/22/18 18:01 L foot swollen, nonerythematous, TTP dorsal aspect LE pulses intact b/l, warm L knee pain elicited with passive extension, TTP L lateral knee joint space Crepitus of L patella noted Vital Signs Temp Pulse Resp BP Pulse Ox 03/22/18 16:50 97.9 F 75 18 139/95 H 98 Temperature: Afebrile Blood Pressure: Hypertensive Pulse: Regular Respiratory Rate: Normal Appearance: Positive for: Well-Appearing, Non-Toxic Pain Distress: Moderate Mental Status: Positive for: Alert and Oriented X 3 - Systems Exam Head: Present: Atraumatic, Normocephalic Pupils: Present: PERRL Extroacular Muscles: Present: EOMI Conjunctiva: Present: Normal Mouth: Present: Moist Mucous Membranes Neck: Present: Normal Range of Motion Respiratory/Chest: Present: Clear to Auscultation, Good Air Exchange. No: Respiratory Distress, Accessory Muscle Use, Wheezes, Rales, Retracting, Rhonchi Cardiovascular: Present: Regular Rate and Rhythm, Normal S1, S2 Abdomen: No: Tenderness, Distention, Rebound, Guarding, Mass/Organomegaly Back: Present: Normal Inspection Upper Extremity: Present: Normal Inspection, Normal ROM, NORMAL PULSES, Capillary Refill < 2s. No: Cyanosis, Edema, Tenderness, Swelling Lower Extremity: Present: NORMAL PULSES, Normal ROM, Tenderness (TTP dorsum L foot), Swelling (L foot), Capillary Refill < 2 s. No: CALF TENDERNESS Neurological: Present: CN II-XII Intact, Speech Normal Skin: Present: Warm, Dry, Normal Color Psychiatric: Present: Alert, Oriented x 3, Normal Insight, Normal Concentration <Hipolito Kinney - Last Filed: 03/22/18 18:13> Vital Signs Temp Pulse Resp BP Pulse Ox 03/22/18 18:14 97.9 F 78 18 124/62 99 03/22/18 16:50 97.9 F 75 18 139/95 H 98 <Edgar Verma - Last Filed: 03/22/18 18:25> Medical Decision Making ED Course and Treatment: 03/22/18 18:03 Impression: 57yo M presenting with worsening L foot pain radiating up the leg to the knee, r/o DVT Plan: --duplex LE b/l --monitor and disposition - RAD Interpretation Narrative RAD Interpretations (Text): 03/22/18 18:13 No acute findings Radiology Orders: 03/22/18 17:00 DUPLEX LOWER EXTRM VEIN LEFT [US] Stat Speed Belt Sander Tender: ED Physician <Hipolito Kinney - Last Filed: 03/22/18 18:13> ED Course and Treatment: 03/22/18 18:24 pt seen with residnet co of leg pain x months already seen by podiatry with neg xr as per pt, s/p injection. no new trauma. in er, foot warm, pt comfortable (+)pulses, no dvt on us no indicatio in er for new xr. advise outpt fu. - RAD Interpretation Radiology Orders: 03/22/18 17:00 DUPLEX LOWER EXTRM VEIN LEFT [US] Stat <Edgar Verma - Last Filed: 03/22/18 18:25> Disposition/Present on Arrival - Present on Arrival Any Indicators Present on Arrival: No History of DVT/PE: No History of Uncontrolled Diabetes: No Urinary Catheter: No History Surgical Site Infection Following: None - Disposition Have Diagnosis and Disposition been Completed?: Yes Disposition Time: 18:14 <Hipolito Kinney - Last Filed: 03/22/18 18:13> <Edgar Verma - Last Filed: 03/22/18 18:25> - Disposition Diagnosis: Leg pain Disposition: HOME/ ROUTINE Patient Problems: Current Active Problems Problem Status Onset Leg pain Acute Condition: STABLE Discharge Instructions (ExitCare): [facility] Additional Instructions: follow up with your doctor/clinic. return to er with worsening symptoms or concerns. Prescriptions: RX: Naproxen 500 mg PO BID PRN #14 tab PRN Reason: Pain, Mild (1-3) Referrals: [facility] [Outside] - Follow up with primary [facility] [place] [Outside] - Follow up with primary [facility] [place] [Outside] - Follow up with primary
[2018-03-22 17:15] VITALS: RESP 18; TEMP 97.9; BMI 35.6
[2018-03-22 18:15] VITALS: BP 124/62; PULSE 78; O2SAT 99
--- NOTE | 2018-03-22 19:47 | US ---
PROCEDURE: Left lower extremity venous US HISTORY: Leg pain and swelling. Evaluate for DVT. PHYSICIAN(S): Aleksey Stanley MD. TECHNIQUE: Duplex sonography and color-flow Doppler with graded compression were used to evaluate the deep venous system of the left lower extremity. FINDINGS: The visualized deep venous system of the left lower extremity is sonographically normal and compressible. Normal wave forms and augmentation are seen. There is no sonographic evidence for deep venous thrombosis in the visualized segments of the left lower extremity. IMPRESSION: 1. No sonographic evidence for deep venous thrombosis in the visualized segments of the left lower extremity.
== END 2018-03-22 18:40 | disposition home or self-care (01) ==
LOC: ED 15:50
DX: M79.605 Pain in left leg (principal)

== ENCOUNTER 2018-04-27 10:24 | Day surgery (SDC) | payer BC, MEDICAID ==
[2018-04-22 14:24] VITALS: BMI 29.0
[2018-04-27 11:09] LABS: BLOOD UREA NITROGEN 11 mg/dL (7-21); CALCIUM 9.6 mg/dL (8.4-10.5); GFR NON-AFRICAN AMERICAN > 60
[2018-04-27 11:11] LABS: BASO # 0.01 K/mm3 (0.0-2.0); BASO % 0.2 % (0.0-3.0); EOS # 0.2 (0.0-0.7); EOS % 3.1 % (1.5-5.0); GRAN # 3.67 (1.4-6.5); GRAN % 56.1 % (50.0-68.0); LYMPH # 1.9 (1.2-3.4); LYMPH % 29.6 % (22.0-35.0); MEAN CELL VOLUME 90.9 fl (80.0-105.0); MEAN CORPUSCULAR HEMOGLOBIN 31.9 pg (25.0-35.0); MEAN CORPUSCULAR HGB CONC 35.1 g/dl (31.0-37.0); MEAN PLATELET VOLUME 10.6 fl (7.0-11.0); MONO # 0.7 (0.1-0.6); RBC 4.7 10^6/uL (3.5-6.1); RED CELL DISTRIBUTION WIDTH 13.1 % (11.5-14.5); WHITE BLOOD COUNT 6.5 10^3/uL (4.5-11.0)
[2018-04-27 11:15] LABS: INR 0.92; PARTIAL THROMBOPLASTIN TIME 29.4 Seconds (25.1-36.5); PROTHROMBIN TIME 10.6 SECONDS (9.4-12.5)
[2018-04-27] MEDS ORDERED: Iodixanol 320 MG/ML 100 ML BOTTLE IV ONE ×2 (13:02→16:04)
[2018-04-27] MEDS ORDERED: Lidocaine 2% Inj (20ml) ONE (13:02)
[2018-04-27] MEDS ORDERED: Iodixanol 320 MG/ML 200 ML BOTTLE IV ONE (13:02)
[2018-04-27] MEDS ORDERED: Nitroglycerin 50mg in D5W 50 MG/250 ML BOTTLE IV ONE (13:03)
[2018-04-27] MEDS ORDERED: Heparin 2,000 ML IV ONE (13:03)
[2018-04-27] MEDS ORDERED: Midazolam 2 MG/2 ML VIAL ONE ×3 (14:27→15:41)
[2018-04-27] MEDS ORDERED: Oxycodone/Acetaminophen 5/325 mg Tab PO PRN (16:32)
[2018-04-27] MEDS ORDERED: HYDROmorphone 2 mg/ml ISec IVP PRN (16:33)
[2018-04-27] MEDS ORDERED: Oxycodone/Acetaminophen 5/325 mg Tab PO ONE (17:48)
[2018-04-27] MEDS ORDERED: Oxycodone/Acetaminophen 5/325 mg Tab ONE (17:48)
--- NOTE | 2018-04-27 20:13 | VASCULAR ---
PROCEDURE: 1. Abdominal aortogram and bilateral lower extremity runoff. HISTORY: Peripheral vascular disease with severe short distance claudication. PHYSICIAN(S): Aleksey Stanley M.D. TECHNIQUE: The relative risks and indications of the procedure were explained to the patient and consent obtained. The patient was hydrated prior to the procedure and the appropriate labs drawn. The patient was placed supine on the arteriogram table and both groins prepped and draped in the usual sterile fashion. Conscious sedation and monitoring were provided throughout the procedure by a nurse. Under ultrasound guidance, the left common femoral artery was punctured with a micropuncture set. A 5 Estonian sheath was placed. Through the sheath over guidewire a 5 Estonian flush catheter was placed the abdominal aorta at the level renal arteries and a PA DSA abdominal pelvic arteriogram performed. The catheter was pulled down to the aortic bifurcation and bilateral oblique DSA pelvic arteriograms performed. Overlapping bilateral lower extremity DSA arteriograms were obtained from the inguinal ligaments to the trifurcation. Initial attempts at crossing the chronic right common iliac artery occlusion in an antegrade direction were unsuccessful. Subsequently the right common femoral artery was punctured distally under ultrasound guidance with a micropuncture set. A 5 Estonian catheter was placed. The chronic right common and external iliac artery occlusions were crossed with an angled glidewire and 5 Estonian catheter. Re-entry could not be easily obtained. An out back re-entry catheter was utilized for re-entry at the right common iliac origin. Exchange is made for a 0.035 support wire. A 7 Estonian, 25 cm sheath was placed on the right. The right common and external iliac arteries were dilated with a 7 mm x 200 mm balloon. Antegrade flow was re-established. A 10 mm x 6 cm self expanding Nitinol stent was placed in the right common iliac artery. In a coaxial fashion, a 7 mm x 150 mm Viabahn stent graft was placed in the right external iliac artery. The common iliac artery stent was dilated with an 8 mm balloon. The right external iliac artery was dilated with a 7 mm balloon. Next the severe focal left external iliac artery stenosis was addressed. A 7 Estonian sheath was placed on the left. A support wire was placed the thoracic aorta. An 8 mm x 40 mm self expanding stent was placed in the terminal left common iliac artery extending into the proximal left external iliac artery. This was dilated with an 8 mm balloon. Completion angiograms were obtained. Bilateral Perclose devices were utilized. The patient tolerated the procedure well P FINDINGS: There are single renal arteries bilaterally which are widely patent and normal in appearance. The nephrograms are symmetric in appearance. Heavily calcified and moderately disease. 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 There is a high-grade stenosis of the proximal left external iliac artery. The middle sacral artery and left internal iliac artery hypertrophied. The infrainguinal runoff is normal bilaterally to the trifurcation. The distal runoff was not evaluated. IMPRESSION: 1.Successful right iliac recanalization with right common and right external iliac artery angioplasty and stent placement 2. Successful left external iliac artery angioplasty and stent placement 3. Normal infrainguinal runoff bilaterally.
[2018-04-27] MEDS: Sodium Chloride 0.45% 1,000 ML IV SCH (20:34)
[2018-04-27 23:54] VITALS: RESP 20
[2018-04-28] MEDS: Sodium Chloride 0.45% 1,000 ML IV SCH (03:02)
[2018-04-28 05:38] VITALS: PULSE 96
[2018-04-28 06:13] VITALS: BP 130/79; TEMP 99.7; O2SAT 95
[2018-04-28 09:27] LABS: BLOOD UREA NITROGEN 11 mg/dL (7-21); CALCIUM 8.8 mg/dL (8.4-10.5); GFR NON-AFRICAN AMERICAN > 60
[2018-04-28] MEDS ORDERED: VARENICLINE TARTRATE 1 MG PO SCH (10:00)
== END 2018-04-28 12:33 | disposition home or self-care (01) ==
LOC: SDSVAS 10:24 → 2RSO 18:07 → SDSVAS 04-28 12:33
PROVIDERS: ATTEND Radiology Vascular & Interventional Radiology
DX: I70.213 Atherosclerosis of native arteries of extremities with intermittent claudication, bilateral legs (principal); F17.200 Nicotine dependence, unspecified, uncomplicated; E78.5 Hyperlipidemia, unspecified